=== PATIENT | male | born 1960 ===

== ENCOUNTER → 2016-08-04 | Outpatient (CLI) | payer BC | LOC: SBRMNEURO 21:30 | PROVIDERS: ATTEND Physician Assistant Medical | DX: G47.33 Obstructive sleep apnea (adult) (pediatric) (principal); R06.3 Periodic breathing; G47.61 Periodic limb movement disorder ==

== ENCOUNTER → 2016-12-29 | Outpatient (CLI) | payer BC | LOC: SBRMNEURO 20:00 | PROVIDERS: ATTEND Internal Medicine Pulmonary Disease | DX: G47.33 Obstructive sleep apnea (adult) (pediatric) (principal); G47.61 Periodic limb movement disorder ==